=== PATIENT | female | born 1985 | race African-American/Black ===

== ENCOUNTER → 2023-10-24 | Emergency (ER) | payer SELFPAY ==
[~2023-10-24] MED LIST: ALBUTEROL 2.5 MG/3 ML NEB SOL ONE; IPRATROPIUM BROM 0.5MG/2.5ML ONE; dexAMETHasone 10 MG/ML VIAL ONE
[2023-10-24 13:27] LABS: SARS-CoV-2 Antigen Rapid Res Negative (Negative)
--- NOTE | 2023-10-24 14:19 | RAD REPORT ---
EXAM DESCRIPTION: RAD - Chest Pa And Lat (2 Views) - 10/24/2023 1:27 pm CLINICAL HISTORY: Congestion;Cough COMPARISON: No comparisons FINDINGS: Lines: None. Lungs: No evidence of edema or pneumonia. Pleural: No significant pleural effusions or pneumothorax. Cardiac: The heart size is within normal limits. Mediastinum: Within normal limits. Bones: No acute fractures. Other: None IMPRESSION: No acute cardiopulmonary disease.
--- NOTE | 2023-10-24 14:33 | EDPHYS ---
Physician Documentation [facility] Name: Lyndsey Laurent Age: 38 yrs Sex: Female : 1985 Arrival Date: 10/24/2023 Time: 12:31 Bed 2 Private MD: ED Physician Dennis Encarnacion HPI: 10/24 13:04 This 38 yrs old Black Female presents to ER via Ambulatory with complaints of Cough, sb4 Shortness Of Breath. 13:04 The patient or guardian reports cough, with productive sputum. Onset: The sb4 symptoms/episode began/occurred 3 day(s) ago. productive cough, upper congestion, wheezing, sore throat x 3 days. no history of asthma. denies fevers. denies sick contacts. no GI symptoms. Historical: - Allergies: 12:57 No Known Allergies; bp - Home Meds: 12:57 None [Active]; bp - PMHx: 12:57 None; bp - Immunization history:: Adult Immunizations up to date. - Social history:: Smoking status: Patient reports the use of cigarette tobacco products. ROS: 13:04 Constitutional: Negative for fever, chills, and weight loss, sb4 13:05 ENT: Positive for sore throat, sb4 13:05 Respiratory: Positive for cough, "sounds productive", 13:05 All other systems are negative, Exam: 13:05 Constitutional: This is a well developed, well nourished patient who is awake, alert, sb4 and in no acute distress. Head/Face: Normocephalic, atraumatic. Eyes: Extra-ocular motions intact. Periorbital areas with no swelling, redness, or edema. ENT: Mucous membranes moist. Cardiovascular: Regular rate and rhythm with a normal S1 and S2. Abdomen/GI: Soft, non-tender, no distension. Skin: Warm, dry with normal turgor. Normal color with no rashes, no lesions, and no evidence of cellulitis. MS/ Extremity: Pulses equal, no cyanosis. Neurovascular intact. Full, normal range of motion. Neuro: Awake and alert, GCS 15, oriented to person, place, time, and situation. Motor strength 5/5 in all extremities. Sensory grossly intact. 13:05 Respiratory: the patient does not display signs of respiratory distress, Respirations: normal, Breath sounds: bronchial sounds, + upper airway congestion. wheezing: expiratory is scattered, Vital Signs: 12:55 BP 120 / 80; Pulse 97; Resp 20; Temp 97.8; Pulse Ox 96% ; Weight 68.04 kg; Height 5 ft. bp 5 in. ; 14:02 BP 133 / 96; Pulse 91; Resp 18; Pulse Ox 100% on R/A; ph 12:55 Body Mass Index 24.96 (68.04 kg, 165.1 cm) bp MDM: 12:51 Patient medically screened. sb4 13:05 Differential Diagnosis: Bronchitis Influenza Upper Respiratory Infection Asthma sb4 Exacerbation Viral Syndrome Pneumonia. 14:31 Data reviewed: vital signs, nurses notes, lab test result(s), radiologic studies, and sb4 as a result, I will discharge patient. Counseling: I had a detailed discussion with the patient and/or guardian regarding the historical points, exam findings, and any diagnostic results supporting the discharge/admit diagnosis, the presence of at least one elevated blood pressure reading (>120/80) during this emergency department visit, lab results, radiology results, to return to the emergency department if symptoms worsen or persist or if there are any questions or concerns that arise at home. 10/24 12:59 Order name: SARS RAPID; Complete Time: 13:34 sb4 10/24 12:59 Order name: Flu; Complete Time: 13:34 sb4 10/24 12:59 Order name: Chest Pa And Lat (2 Views) XRAY; Complete Time: 14:21 sb4 Administered Medications: 13:09 Drug: DuoNeb Nebulize (3:1) (2.5 mg - 0.5 mg) 3 ml Nebulizer once Route: Nebulizer; bp 14:14 Follow up: Response: No adverse reaction bp 13:09 Drug: Dexamethasone IM 10 mg IM once Route: IM; Site: right gluteus; bp 14:14 Follow up: Response: No adverse reaction bp Disposition: 17:37 Co-signature as Attending Physician, Dennis Encarnacion MD I reviewed the patient's care rt provided by the Advanced Practice Provider and agree with the diagnosis and treatment plan. Disposition Summary: 10/24/23 14:32 Discharge Ordered Notes: Location: Home sb4 Problem: new sb4 Symptoms: have improved sb4 Condition: Stable sb4 Diagnosis - Acute bronchitis, unspecified sb4 Followup: sb4 - With: Emergency Department - When: As needed - Reason: Trouble breathing, Worsening of condition Discharge Instructions: - Discharge Summary Sheet sb4 - Acute Bronchitis, Adult sb4 Forms: - Medication Reconciliation Form sb4 - Thank You Letter sb4 - Antibiotic Education sb4 - Prescription Opioid Use sb4 - Patient Portal Instructions sb4 - Leadership Thank You Letter sb4 Prescriptions: - albuterol sulfate 90 mcg/actuation Inhalation HFA Aerosol Inhaler - inhale 2 puff INHALATION route every 4 hours as needed for shortness of breath sb4 or wheezing; 1 Applicator; Refills: 0, Product Selection Permitted - Tessalon Perles 100 mg Oral Capsule - take 1 capsule ORAL route every 8 hours As needed; 15 capsule; Refills: 0, sb4 Product Selection Permitted - Prednisone 20 mg Oral Tablet - take 1 tablet ORAL route every 12 hours for 5 days; 10 tablet; Refills: 0, sb4 Product Selection Permitted Signatures: Dispatcher [employer] Tahir Medina RN RN Nette Turk PA-C PA-C sb4 Dennis Encarnacion MD MD rt Corrections: (The following items were deleted from the chart) 13:05 12:55 Social history: Smoking status: unknown bp sb4
--- NOTE | 2023-10-24 14:33 | ER ---
Nurse's Notes [facility] Name: Lyndsey Laurent Age: 38 yrs Sex: Female : 1985 Arrival Date: 10/24/2023 Time: 12:31 Bed 2 Private MD: Diagnosis: Acute bronchitis, unspecified Presentation: 10/24 12:55 Chief complaint: Patient states: COUGH/CONGESTION x2 DAYS. Coronavirus screen: At this bp time, the client does not indicate any symptoms associated with coronavirus-19. Ebola Screen: No symptoms or risks identified at this time. Initial Sepsis Screen: Does the patient meet any 2 criteria? HR > 90 bpm. No. Patient's initial sepsis screen is negative. Does the patient have a suspected source of infection? No. Patient's initial sepsis screen is negative. Risk Assessment: Do you want to hurt yourself or someone else? Patient reports no desire to harm self or others. Onset of symptoms is unknown. 12:55 Method Of Arrival: Ambulatory bp 12:55 Acuity: SAVANA 3 bp Triage Assessment: 12:57 General: Appears in no apparent distress. ill, Behavior is calm, cooperative, bp appropriate for age. Pain: Denies pain. Respiratory: Reports shortness of breath cough that is Onset: The symptoms/episode began/occurred at an unknown time. the patient has moderate shortness of breath. Historical: - Allergies: 12:57 No Known Allergies; bp - Home Meds: 12:57 None [Active]; bp - PMHx: 12:57 None; bp - Immunization history:: Adult Immunizations up to date. - Social history:: Smoking status: Patient reports the use of cigarette tobacco products. Screenin:59 [facility] ED Fall Risk Assessment (Adult) History of falling in the last 3 months, bp including since admission No falls in past 3 months (0 pts). Abuse screen: Denies threats or abuse. Denies injuries from another. Nutritional screening: No deficits noted. Tuberculosis screening: No symptoms or risk factors identified. Assessment: 12:59 General: SEE TRIAGE NOTE. bp Vital Signs: 12:55 BP 120 / 80; Pulse 97; Resp 20; Temp 97.8; Pulse Ox 96% ; Weight 68.04 kg; Height 5 ft. bp 5 in. ; 14:02 BP 133 / 96; Pulse 91; Resp 18; Pulse Ox 100% on R/A; ph 12:55 Body Mass Index 24.96 (68.04 kg, 165.1 cm) bp ED Course: 12:32 Patient arrived in ED. mr 12:45 Nette Jon PA-C is PHCP. sb4 12:45 Dennis Encarnacion MD is Attending Physician. sb4 12:51 Tahir Smith, RN is Primary Nurse. bp 12:57 Triage completed. bp 12:57 Arm band placed on. bp 12:59 Patient has correct armband on for positive identification. bp 13:29 Chest Pa And Lat (2 Views) XRAY In Process Unspecified. EDMS 15:22 No provider procedures requiring assistance completed. Patient did not have IV access ph during this emergency room visit. Administered Medications: 13:09 Drug: DuoNeb Nebulize (3:1) (2.5 mg - 0.5 mg) 3 ml Nebulizer once Route: Nebulizer; bp 14:14 Follow up: Response: No adverse reaction bp 13:09 Drug: Dexamethasone IM 10 mg IM once Route: IM; Site: right gluteus; bp 14:14 Follow up: Response: No adverse reaction bp Medication: 13:31 VIS not applicable for this client. ph Outcome: 14:32 Discharge ordered by MD. sb4 15:22 Discharged to home ambulatory, ph 15:22 Condition: good 15:22 Discharge instructions given to patient, Instructed on discharge instructions, follow up and referral plans. medication usage, Demonstrated understanding of instructions, follow-up care, medications, Prescriptions given X 3, 15:23 Patient left the ED. ph Signatures: Dispatcher [employer] EDMI Florencia Florence, Donavon Reg Lisa Pabon RN RN ph Tahir Smith, RN RN bp Nette Jon PA-C PA-C sb4 Corrections: (The following items were deleted from the chart) 13:05 12:55 Social history: Smoking status: unknown bp sb4
[2023-10-24 17:47] VITALS: BP 133/96; TEMP 97.8; O2SAT 100
== END ==
LOC: ER 12:31
DX: J20.9 Acute bronchitis, unspecified (principal); Z11.52 Encounter for screening for COVID-19
CPT/HCPCS: 36415; 71046; 87804; 87811; 94640; J1100; J7613; J7644